=== PATIENT | male | born 1995 | race Caucasian/White ===

== ENCOUNTER 2019-12-31 09:28 | Emergency (ER) | payer SELFPAY ==
[~2019-12-31] VITALS: Ht 180.3 cm; Wt 99.8 kg
--- NOTE | 2019-12-31 10:08 | Emergency Department Note ---
History of Present Illnes History of Present Illness Chief Complaint: General Medicine Complaints History of Present Illness This is a 24 year old male who presents with a one-day history of dry cough and sore throat. 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 He's also had some nasal congestion and drainage that started early this morning. He denies any fever, chills, nausea, vomiting, chest pain, or shortness of breath. He does have a history of seasonal allergies, but does not take any [id number] medications for his symptoms. He has not taken anything for the symptoms he presents for today. No history of asthma. 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: No Onset (how long ago): day(s) Location: sore throat Quality: paifuls Radiation: Reports non-radiation Severity: moderate Onset quality: sudden Duration (how long): hour(s) (18) Timing of current episode: constant Progression: worsening Context: Denies recent illness, Denies recent travel Relieving factors: none Exacerbating factors: none Associated symptoms: Denies fever/chills, Denies headaches, Denies nausea/ vomiting, Denies shortness of breath Treatments prior to arrival: none Risk factors: smoker Past Medical/Family History Physician Review I have reviewed the patient's past medical and family history. Any updates have been documented here. Past Medical History Recent Fever: No Clinical Suspicion of Infectio: No New/Unexplained Change in Ment: No Other Medical History: ADHD Other Surgery: DENTAL SURGERY Social History Smoking Cessation: Current every day smoker Counseling Performed: Yes Alcohol Use: Occasional Any Illegal Drug Use: No TB Exposure/Symptoms: No Physically hurt or threatened: No Family History Family history of heart diseas: No Other Last Tetanus: > 5 YEARS AGO Any Pre-Existing Lines (PICC,: No Is patient up to date on immun: No Review of Systems Review of Systems Constitutional: Denies chills, Denies fever EENTM: Reports no symptoms Cardiovascular: Denies chest pain, Denies palpitations Respiratory: Reports cough (dry); Denies pain on inspiration, Denies pain with cough Gastrointestinal: Reports no symptoms Musculoskeletal: Reports no symptoms Integumentary: Reports no symptoms; Denies rash Neurological: Reports no symptoms Psychological: Reports no symptoms Hematological/Lymphatic: Reports no symptoms Review of other systems All other systems reviewed and negative. Physical Exam Related Data Allergies: Coded Allergies: Sulfa (Sulfonamide Antibiotics) (Verified Allergy, Severe, 12/31/19) latex (Verified Allergy, Severe, 12/31/19) Triage Vital Signs Vital Signs Date Time Temp Pulse Resp B/P (MAP) Pulse Ox O2 Delivery O2 Flow Rate FiO2 12/31/19 09:28 98.9 90 18 131/84 99 Vital signs reviewed: Yes (discharge) Physical Exam CONSTITUTIONAL Constitutional: Reports well-developed, Reports well-nourished; Denies ill appearing HENT HENT: Reports normocephalic, Reports atraumatic, Reports oropharynx clear/moist, Reports nose normal, Reports pharynx abnormal (slightly erythematous, without exudate), Reports erythema; Denies oropharyngeal exudate HENT L/R: Reports left TM normal, Reports right TM normal, Reports left canal normal, Reports right canal normal, Reports left ext ear normal, Reports right ext ear normal EYES Eyes: Reports PERRL, Reports conjunctivae normal NECK Neck: Reports ROM normal PULMONARY Pulmonary: Reports effort normal, Reports breath sounds normal CARDIOVASCULAR Cardiovascular: Reports regular rhythm, Reports heart sounds normal; Denies murmur GASTROINTESTINAL Abdominal: Reports soft GENITOURINARY Genitourinary: Reports exam deferred SKIN Skin: Reports warm, Reports dry; Denies rash MUSCULOSKELETAL Musculoskeletal: Reports ROM normal NEUROLOGICAL Neurological: Reports alert, Reports oriented x 3 PSYCHOLOGICAL Results Laboratory Laboratory Rapid Strep - Negative Lab results reviewed: Yes Assessment & Plan Medical Decision Making MDM - Recommend that you get the following medications over the counter: - Zyrtec/Cetirizine 10 mg - 1 tab daily to help with allergy symptoms (post-na lali drainage, sore throat, sinus congestion) - Flonase or Nasacort Nasal [place] - 2 spray each nostril once daily, to help with nasal congestion, runny nose, or sneezing. - Increase water intake - Recommend for throat pain: - warm salt water gargles - Ibuprofen 200 mg - 3 tabs together every 6 hours, as needed. Assessment & Plan Final Impression: (1) Allergic rhinitis (2) Pharyngitis, acute Depart Disposition: HOME, SELF-CARE Last Vital Signs Date Time Temp Pulse Resp B/P (MAP) Pulse Ox O2 Delivery O2 Flow Rate FiO2 12/31/19 09:28 98.9 90 18 131/84 99 Medications in the ED Decadron 10 mg IM JACINTA GUAJARDO MD Dec 31, 2019 10:08
[2019-12-31] MEDS ORDERED: DEXAMETHASONE SOD PHOS 10 MG/1 ML VIAL ONE (10:28)
[2019-12-31] MEDS ORDERED: DEXAMETHASONE SOD PHOS 10 MG/1 ML VIAL IM ONE (10:30)
== END 2019-12-31 10:28 | disposition home or self-care (01) ==
LOC: FSED 09:28
DX: R05 Cough (principal); J02.9 Acute pharyngitis, unspecified; J30.9 Allergic rhinitis, unspecified; F90.9 Attention-deficit hyperactivity disorder, unspecified type; F17.210 Nicotine dependence, cigarettes, uncomplicated
CPT/HCPCS: 83518; 99282; J1100